=== PATIENT | male | born 1955 | race African-American/Black ===

== ENCOUNTER 2017-10-25 12:30 | Emergency (ER) | payer MEDICAID ==
[~2017-10-25] VITALS: Ht 182.9 cm; Wt 95.5 kg
[2017-10-25 12:42] VITALS: BP 141/94
== END 2017-10-25 19:21 | disposition left against medical advice (07) ==
LOC: ER 13:01
DX: Z53.21 Procedure and treatment not carried out due to patient leaving prior to being seen by health care provider (principal)